=== PATIENT | male | born 1985 | race African-American/Black ===

== ENCOUNTER 2019-12-21 08:38 | Emergency (ER) | payer MEDICAID ==
[~2019-12-21] VITALS: Ht 180.3 cm; Wt 82.0 kg
[2019-12-21] MEDS ORDERED: BACITRACIN ZINC OINT UDPKT TOP ONE (09:15)
[2019-12-21] MEDS ORDERED: LIDOCAINE 1%/EPI 1:100,000 10 ML VIAL IJ ONE (09:15)
[2019-12-21] MEDS ORDERED: IBUPROFEN 600MG TABLET PO ONE (09:15)
[2019-12-21 09:22] VITALS: BP 119/63
[2019-12-21] MEDS ORDERED: LIDOCAINE HCL/EPINEPHRINE 1%-EPI 1:100,000 20 ML VIAL INFIL NR (09:30)
== END 2019-12-21 10:00 | disposition home or self-care (01) ==
LOC: ER 08:38
DX: L02.31 Cutaneous abscess of buttock (principal)
CPT/HCPCS: 10060; 99283; J3490